=== PATIENT | male | born 1970 | race Caucasian/White ===

== ENCOUNTER 2018-01-04 06:35 | Emergency (ER) | payer MEDICARE ==
[2018-01-04 07:01] LABS: ABSOLUTE LYMPHOCYTES (AUTO) 1.3 10^3/uL (0.5-4.7); ABSOLUTE MONOCYTES (AUTO) 0.5 10^3/uL (0.1-1.4); ABSOLUTE NEUT (AUTO) 5.2 10^3/uL (1.7-8.2); BASOPHILS % (AUTO) 0.1 % (0-2); EOSINOPHILS % (AUTO) 0.6 % (0-6); HEMATOCRIT 42.8 % (37.9-51.0); HEMOGLOBIN 14.8 g/dL (13.5-17.0); LYMPHOCYTES % (AUTO) 18.6 % (13-45); MEAN CORPUSCULAR HEMOGLOBIN 28.8 pg (27.0-33.4); MEAN CORPUSCULAR HGB CONC 34.5 g/dL (32.0-36.0); MEAN CORPUSCULAR VOLUME 84 fl (80-97); MONOCYTES % (AUTO) 7.7 % (3-13); PLATELET COUNT 211 10^3/uL (150-450); RED BLOOD COUNT 5.12 10^6/uL (4.35-5.55); RED CELL DISTRIBUTION WIDTH 13.8 % (11.5-14.0); TOTAL CELLS COUNTED % (AUTO) 100 %; WHITE BLOOD COUNT 7.1 10^3/uL (4.0-10.5)
[2018-01-04 07:07] LABS: ALANINE AMINOTRANSFERASE 40 U/L (21-72); ALBUMIN 4.4 g/dL (3.5-5.0); ALKALINE PHOSPHATASE 72 U/L (38-126); ANION GAP 12 (5-19); ASPARTATE AMINO TRANSFERASE 29 U/L (17-59); BILIRUBIN,DIRECT 0.3 mg/dL (0.0-0.4); BILIRUBIN,TOTAL 0.7 mg/dL (0.2-1.3); BLOOD UREA NITROGEN 12 mg/dL (7-20); CALCIUM 9.1 mg/dL (8.4-10.2); CARBON DIOXIDE 29 mmol/L (22-30); CHLORIDE 101 mmol/L (98-107); GLUCOSE 85 mg/dL (75-110); LIPASE 62.6 U/L (23-300); POTASSIUM 4.2 mmol/L (3.6-5.0); SODIUM 141.8 mmol/L (137-145); TOTAL PROTEIN 7.3 g/dL (6.3-8.2)
[2018-01-04] MEDS ORDERED: BACLOFEN 10 MG TABLET PO ONE (07:41)
[2018-01-04] MEDS ORDERED: ONDANSETRON 4 MG TAB.RAPDIS PO ONE ×2 (07:49→11:16)
[2018-01-04] MEDS: NORMAL SALINE 1000 ML 1,000 ML IV PRN ×2 (08:06→08:07)
[2018-01-04 08:47] LABS: AMORPHOUS SEDIMENT,URINE TRACE /HPF; APPEARANCE,URINE SLIGHTLY-CLOUDY; BILIRUBIN,URINE NEGATIVE (NEGATIVE); COLOR,URINE YELLOW; GLUCOSE, URINE NEGATIVE (NEGATIVE); KETONES,URINE TRACE mg/dL (NEGATIVE); LEUKOCYTE ESTERASE,URINE NEGATIVE (NEGATIVE); NITRITE,URINE NEGATIVE (NEGATIVE); PROTEIN,URINE NEGATIVE (NEGATIVE); UROBILINOGEN,URINE NEGATIVE mg/dL (<2.0)
[2018-01-04] MEDS ORDERED: DIAZEPAM INJ 10 MG/2 ML DISP.SYRIN IV ONE (09:03)
--- NOTE | 2018-01-04 10:47 | EKG REPORT ---
SEVERITY:- ABNORMAL ECG - SINUS TACHYCARDIA PROBABLE LEFT ATRIAL ABNORMALITY PROBABLE LEFT VENTRICULAR HYPERTROPHY BORDERLINE PROLONGED QT INTERVAL : Confirmed by: Kiera Jones MD 04-Jan-2018 10:46:47
--- NOTE | 2018-01-04 11:29 | ER Document Report ---
ED General - General Chief Complaint: Abdominal Pain Stated Complaint: LEFT SIDE PAIN Time Seen by Provider: 01/04/18 06:50 TRAVEL OUTSIDE OF THE [place] IN LAST 30 DAYS: No - HPI Patient complains to provider of: Diarrhea muscle spasticity Notes: Patient has a history of TBI coming in today for evaluation of diarrhea and muscle spasticity. Patient has a baclofen pump patient states muscle spasms increasing her last few days worse last night also has been having diarrhea for the last 2-3 days. Patient states he has been trying to hydrate orally. States his little nauseous. Patient denies any fevers chills nausea vomiting. states patient sees pain management at [facility] and supposed to have his baclofen pump filled at the beginning of January. Upon my evaluation patient does look to be having muscle spasms in the lower legs and left upper extremities. Denies any head trauma denies any weakness. Patient is also tachycardic - Related Data Allergies/Adverse Reactions: Penicillins Allergy (Verified 01/04/18 07:10) Past Medical History - Social History Smoking Status: Never Smoker Frequency of alcohol use: None Family History: Reviewed & Not Pertinent Patient has suicidal ideation: No Patient has homicidal ideation: No Neurological Medical History: Reports: Hx Seizures Renal/ Medical History: Denies: Hx Peritoneal Dialysis Review of Systems - Review of Systems Constitutional: No symptoms reported EENT: No symptoms reported Cardiovascular: No symptoms reported Respiratory: No symptoms reported Gastrointestinal: Diarrhea Genitourinary: No symptoms reported Male Genitourinary: No symptoms reported Musculoskeletal: Muscle pain Skin: No symptoms reported Hematologic/Lymphatic: No symptoms reported Neurological/Psychological: No symptoms reported -: Yes All other systems reviewed and negative Physical Exam - Vital signs Vitals: Resp BP Pulse Ox 15 123/86 H 96 01/04/18 06:50 01/04/18 06:50 01/04/18 06:50 Interpretation: Normal - General General appearance: Appears well, Alert - HEENT Head: Normocephalic, Atraumatic Eyes: Normal Pupils: PERRL - Respiratory Respiratory status: No respiratory distress Chest status: Nontender Breath sounds: Normal Chest palpation: Normal - Cardiovascular Rhythm: Regular Heart sounds: Normal auscultation Murmur: No - Abdominal Inspection: Other - Hardware is felt in the right lower quadrant with a healed abdominal scars. Otherwise the abdomen soft nontender Distension: No distension Bowel sounds: Normal Tenderness: No: Guarding, Rebound Organomegaly: No organomegaly - Back Back: Normal, Nontender - Extremities General upper extremity: Nontender, Normal color, Normal ROM, Normal temperature. No: Normal inspection - Spasms of the left upper extremity General lower extremity: Nontender, Normal color, Normal ROM, Normal temperature , Normal weight bearing. No: Normal inspection - Spasms of the left lower extremity, Med's sign - Neurological Neuro grossly intact: Yes Cognition: Normal Orientation: AAOx4 Proctor Coma Scale Eye Opening: Spontaneous Proctor Coma Scale Verbal: Oriented Proctor Coma Scale Motor: Obeys Commands Proctor Coma Scale Total: 15 Speech: Normal Motor strength normal: LUE, RUE, LLE, RLE Additional motor exam normals: Equal candle wrapper Sensory: Normal Knee - Reflex grade: 2 = Normal - Psychological Associated symptoms: Normal affect, Normal mood - Skin Skin Temperature: Warm Skin Moisture: Dry Skin Color: Normal Course - Re-evaluation Re-evalutation: 01/04/18 11:56 Initial presentation the patient tachycardia and spasming concern for more likely underlying electrolyte abnormality. states that the patient in the past that has issues with baclofen pump requiring surgery. At that time patient was more drowsy and unresponsive sounds more like a overdose of baclofen. Patient's presentation days more consistent with failure of the pump and baclofen withdrawal Patient was given 10 of oral baclofen however did not receive any relief therefore did give the patient 5 out of the volume was to lowers his heart rate along with 2 L of fluid. Patient upon reevaluation stating feeling much better. Explained to the patient has left her lites were within normal limits more likely this is related to his back for the pump that at this time I would recommend treatment with either oral baclofen or Valium which ever his pain management doctor would recommend. Did contact [facility] however the patient's pain management group does not have anybody spinner iron according to the transfer team and when available to discuss the patient's case at the inform the patient of this given the options of transfer versus home with p.o. Valium. Patient states that he would rather go home this time as he is feeling better with p.o. Valium. then interrupted stating that she is more concerned because his previous episodes and thinks that the patient needs to go to [facility] for further evaluation. I did contact her hospitalist here in the ER I discussed the patient's case with Dr. Sow and unfortunately we do not have any pain management available to manage his baclofen pumps. There is no other person in the hospital that is familiar with baclofen pumps. Patient's heart rate did increase at this time is that his and him were arguing I discussed the patient's case with hospitalist at [facility] she is she will posterior and she is going to require more than Dr. Mcgowan. I discussed the case with Dr. Mcgowan he did ask what would be the benefit of transferring the patient to [facility]. I explained the only benefit that I see that the patient will be available to see his primary spray painter helper. Dr Mcgowan accepted the patient in transfer. I did notify the family. Noted at this time that the patient now is requesting to be discharged as that they would like to go home and he felt this is a safe option patient's vital signs have improved patient is feeling much better there is no longer any spasming of the patient patient can return to the ER anytime for worsening symptoms. Patient and at bedside now agree with this management plan patient will be discharged home 01/04/18 12:02 01/04/18 12:04 01/04/18 12:06 - Vital Signs Vital signs: Temp Pulse Resp BP Pulse Ox 98.7 F 14 134/92 H 100 01/04/18 11:50 01/04/18 11:50 01/04/18 11:50 01/04/18 11:50 - Laboratory Result Diagrams: 01/04/18 06:44 01/04/18 06:44 Laboratory results interpreted by me: 01/04/18 08:29 Urine Ketones TRACE H Discharge - Discharge Clinical Impression: Muscle spasticity, History of traumatic brain injury Diarrhea Qualifiers: Diarrhea type: unspecified type Qualified Code(s): R19.7 - Diarrhea, unspecified Baclofen pump failure Qualifiers: Encounter type: initial encounter Qualified Code(s): T85.610A - Breakdown ( mechanical) of cranial or spinal infusion catheter, initial encounter Condition: Good Disposition: HOME, SELF-CARE Instructions: Diarrhea, Nonspecific ([facility]), Muscle Relaxers ([facility]) Additional Instructions: Your laboratory studies today do not show any clear etiology for your diarrhea. There is no signs of any infection no signs of any electrolyte abnormalities. Please continue to drink plenty water to stay hydrated. I highly recommend that she follow-up with your pain management specialists the next 3-5 days. At this time we will treat as that this has increased muscle spasms with Valium seemed to perform well here in the ER. Return to the ER for any other concerns. Prescriptions: Diazepam [Valium 5 mg Tablet] 5 mg PO Q4 PRN #20 tablet PRN Reason: Forms: Return to Work
[2018-01-04 12:36] VITALS: BP 134/92
== END 2018-01-04 12:13 | disposition home or self-care (01) ==
LOC: ER 06:35
DX: T85.610A Breakdown (mechanical) of cranial or spinal infusion catheter, initial encounter (principal); Y82.8 Other medical devices associated with adverse incidents; M62.838 Other muscle spasm; R19.7 Diarrhea, unspecified; R00.0 Tachycardia, unspecified; Z87.820 Personal history of traumatic brain injury; Z88.0 Allergy status to penicillin
CPT/HCPCS: 93005; 99284; 96361; 96374; 36415; 83690; 83735; 80156; 85025; 80053; 81001; 93010; A9270 ×2; J3360; J7030; S0119

== ENCOUNTER 2019-07-17 21:07 | Emergency (ER) | payer MEDICARE ==
[2019-07-17 21:59] LABS: ABSOLUTE LYMPHOCYTES (AUTO) 1.1 10^3/uL (0.5-4.7); ABSOLUTE MONOCYTES (AUTO) 0.4 10^3/uL (0.1-1.4); ABSOLUTE NEUT (AUTO) 8.1 10^3/uL (1.7-8.2); BASOPHILS % (AUTO) 0.2 % (0-2); HEMATOCRIT 33.2 % (37.9-51.0); HEMOGLOBIN 11.2 g/dL (13.5-17.0); LYMPHOCYTES % (AUTO) 11.1 % (13-45); MEAN CORPUSCULAR HEMOGLOBIN 25.7 pg (27.0-33.4); MEAN CORPUSCULAR HGB CONC 33.7 g/dL (32.0-36.0); MEAN CORPUSCULAR VOLUME 76 fl (80-97); MONOCYTES % (AUTO) 4.4 % (3-13); PLATELET COUNT 240 10^3/uL (150-450); RED BLOOD COUNT 4.36 10^6/uL (4.35-5.55); RED CELL DISTRIBUTION WIDTH 14.8 % (11.5-14.0); SEGMENTED NEUTROPHILS % (AUTO) 84.3 % (42-78); TOTAL CELLS COUNTED % (AUTO) 100 %; WHITE BLOOD COUNT 9.6 10^3/uL (4.0-10.5)
[2019-07-17 22:20] LABS: ACETAMINOPHEN < 10 ug/mL (10-30); ALBUMIN 3.9 g/dL (3.5-5.0); ALCOHOL < 10 mg/dL (NONE DETECTED); ALKALINE PHOSPHATASE 53 U/L (38-126); ANION GAP 8 (5-19); ASPARTATE AMINO TRANSFERASE 29 U/L (17-59); BILIRUBIN,DIRECT 0.1 mg/dL (0.0-0.4); BILIRUBIN,TOTAL 0.5 mg/dL (0.2-1.3); BLOOD UREA NITROGEN 13 mg/dL (7-20); CALCIUM 8.9 mg/dL (8.4-10.2); CARBON DIOXIDE 26 mmol/L (22-30); CHLORIDE 100 mmol/L (98-107); GLUCOSE 113 mg/dL (75-110); POTASSIUM 4.4 mmol/L (3.6-5.0); SALICYLATE 1.1 mg/dL (2.0-20.0); TOTAL PROTEIN 6.6 g/dL (6.3-8.2)
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
[2019-07-17] MEDS: TIZANIDINE HCL 4 MG TABLET PO PRN (22:59)
[2019-07-17 23:43] LABS: APPEARANCE,URINE CLEAR; BILIRUBIN,URINE NEGATIVE (NEGATIVE); COLOR,URINE YELLOW; GLUCOSE, URINE NEGATIVE (NEGATIVE); KETONES,URINE 20 mg/dL (NEGATIVE); LEUKOCYTE ESTERASE,URINE NEGATIVE (NEGATIVE); NITRITE,URINE NEGATIVE (NEGATIVE); PROTEIN,URINE 30 mg/dL (NEGATIVE); URINE SPECIFIC GRAVITY 1.018
[2019-07-17 23:58] LABS: URINE AMPHETAMINES SCREEN NEGATIVE; URINE BARBITURATES SCREEN NEGATIVE; URINE BENZODIAZEPINES SCREEN NEGATIVE; URINE COCAINE SCREEN NEGATIVE; URINE MARIJUANA (THC) SCREEN NEGATIVE; URINE METHADONE SCREEN NEGATIVE; URINE PHENCYCLIDINE SCREEN NEGATIVE
[2019-07-18] MEDS: ACETAMINOPHEN 325 MG TABLET PO ONE ×2 (01:11→02:07)
[2019-07-18] MEDS ORDERED: CARBAMAZEPINE 200 MG TABLET PO SCH ×2 (08:00→14:30)
[2019-07-18] MEDS: TIZANIDINE HCL 4 MG TABLET PO PRN ×3 (08:28→23:15)
[2019-07-18] MEDS: CEPHALEXIN 500 MG CAPSULE PO SCH ×4 (10:15→23:15)
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
--- NOTE | 2019-07-18 16:55 | ER Document Report ---
Doctor's Note Notes: 07/18/19 16:54 patient resting comfortably without any complaints. Nontoxic, well-appearing. Patient's Tegretol was increased to twice daily per psych recommendations. Patient is agreeable to this plan of care. Patient will continue to remain in the ER pending psychiatric recommendations.
[2019-07-18] MEDS: CARBAMAZEPINE 200 MG TABLET PO SCH (17:46)
[2019-07-19] MEDS: CARBAMAZEPINE 200 MG TABLET PO SCH ×2 (08:28→18:11)
[2019-07-19] MEDS: CEPHALEXIN 500 MG CAPSULE PO SCH ×4 (10:50→22:09)
[2019-07-19] MEDS: TIZANIDINE HCL 4 MG TABLET PO PRN ×2 (15:25→22:09)
--- NOTE | 2019-07-19 20:45 | EKG REPORT ---
SEVERITY:- ABNORMAL ECG - SINUS RHYTHM PROBABLE LEFT ATRIAL ABNORMALITY PROBABLE LEFT VENTRICULAR HYPERTROPHY ABNORMAL T, CONSIDER ISCHEMIA, LATERAL LEADS : Confirmed by: Elisa Galarza 19-Jul-2019 20:44:27
[2019-07-20] MEDS ORDERED: ACETAMINOPHEN 325 MG TABLET PO ONE ×3 (06:01→19:45)
[2019-07-20] MEDS: TIZANIDINE HCL 4 MG TABLET PO PRN ×3 (06:15→14:01)
--- NOTE | 2019-07-20 07:56 | PSYCHOLOGICAL NOTE ---
Psych Note - Psych Note Date seen by psych provider: 07/20/19 Time seen by psych provider: 07:45 Psych Note: Check in attempted. Patient was sleeping and not easily aroused by verbal stimuli. Patient is not medically clear. Clinician will check in with patient later. Updated 12:15: Patient is tearful and requesting to be discharged. Patient states he was not trying to kill himself that he was "trying to teach his a lesson." Patient states he is "going crazy in here." Patient states he now knows he is "better off at home." Clinician attempted to relay his spouse's fears of increased depression. Patient denies depression and a desire to , except for "in here." Medication recommendations per [facility]'s contracted psychiatrist Dr. Warren SINGH are as follows Please increase home medication of Tegretol to 400 mg twice daily Impression\\plan: Patient is recommended for continued IVC. Patient attempted to kill himself by cutting his wrist. Medication recommendations have been provided. Patient continues to minimize suicide attempt. Patient lack insight into his current circumstance. Plan of care discussion is ongoing. Nathaniel was consulted to care management of this patient; attending physicians in agreement with recommendations and disposition.
[2019-07-20] MEDS: CARBAMAZEPINE 200 MG TABLET PO SCH ×2 (08:21→18:26)
[2019-07-20] MEDS: CEPHALEXIN 500 MG CAPSULE PO SCH ×4 (09:43→21:54)
--- NOTE | 2019-07-20 10:26 | ER Document Report ---
Doctor's Note Notes: 07/20/19 10:25 I discussed the patient with the psychiatric team. I evaluated the patient. He has contractures of the left hand and upper arm. There is a laceration to the volar aspect of the right wrist with sutures that are intact, no redness or discharge at this time. Patient has no complaints at this time. Physical therapy consultation has been ordered for the patient per the social science instructor clarice levin.
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
--- NOTE | 2019-07-20 11:09 | ER Document Report ---
Doctor's Note Notes: 07/20/19 11:05 On further discussion with psychiatry they are requesting a head CT, they had apparently spoken with the patient's who indicated that approximately 1.5 years ago there was an abrupt change in the patient's mental status. They are concerned patient may have had a stroke or something else that precipitated this.
--- NOTE | 2019-07-20 11:47 | RADIOLOGY REPORT (SQ) ---
EXAM DESCRIPTION: CT HEAD WITHOUT COMPLETED DATE/TIME: 07/20/2019 11:33 am REASON FOR STUDY: AMS COMPARISON: None. TECHNIQUE: Axial images acquired through the brain without intravenous contrast. Images reviewed wi th bone, brain and subdural windows. Additional sagittal and coronal reconstructions were generated. Images stored on PACS. All CT scanners at this facility use dose modulation, iterative reconstruction, and/or weight based d osing when appropriate to reduce radiation dose to as low as reasonably achievable (ALARA). [facility]: Dose Right [facility]: CareDose [facility]: Dose Right [facility]: Teradose 4D [facility]: [employer] RADIATION DOSE: CT Rad equipment meets quality standard of care and radiation dose reduction techniq ues were employed. CTDIvol: 53.2 mGy. DLP: 1044 mGy-cm. mGy. LIMITATIONS: None. FINDINGS: VENTRICLES: Normal size and contour. CEREBRUM: No masses. No hemorrhage. No midline shift. No evidence for acute infarction. Chronic in farct involving the right posterior frontal anterior parietal region. This contains calcifications c entrally. CEREBELLUM: No masses. No hemorrhage. No alteration of density. No evidence for acute infarction. EXTRAAXIAL SPACES: No fluid collections. No masses. ORBITS AND GLOBE: No intra- or extraconal masses. Normal contour of globe without masses. CALVARIUM: No fracture. PARANASAL SINUSES: No fluid or mucosal thickening. SOFT TISSUES: No mass or hematoma. OTHER: No other significant finding. IMPRESSION: Old right MCA infarct. No acute intracranial event. EVIDENCE OF ACUTE STROKE: NO. COMMENT: Quality ID # [id number]: Final reports with documentation of one or more dose reduction techniques (e.g., Automated exposure control, adjustment of the mA and/or kV according to patient size, use of iterative reconstruction technique) TECHNICAL DOCUMENTATION: JOB ID: [id number] [employer]- All Rights Reserved Reading location - IP/workstation name: [email or web address]
--- NOTE | 2019-07-20 17:02 | ER Document Report ---
Doctor's Note Notes: 07/20/19 17:[address] imaging report which shows an old right MCA infarction. No acute infarction is noted
[2019-07-21] MEDS: TIZANIDINE HCL 4 MG TABLET PO PRN ×4 (00:02→20:12)
[2019-07-21] MEDS: CARBAMAZEPINE 200 MG TABLET PO SCH ×2 (07:39→17:46)
[2019-07-21] MEDS: CEPHALEXIN 500 MG CAPSULE PO SCH ×4 (09:15→21:18)
--- NOTE | 2019-07-21 10:20 | ER Document Report ---
Doctor's Note Notes: 07/21/19 10:20 Patient awake and alert states he wants to go home. Has no other complaints physically at this time. Denies thoughts of wanting to hurt himself currently. Has spoken with the psychiatric team, they do not yet have placement for the patient.
--- NOTE | 2019-07-21 14:45 | PSYCHOLOGICAL NOTE ---
Psych Note - Psych Note Date seen by psych provider: 07/21/19 Time seen by psych provider: 08:40 Psych Note: Check in with patient. Patient states "the meds are really working, especially at night." Patient states he is "going crazy" being in the ED. Patient restated he did not attempt to kill himself, that he was trying to get back at his because "I was ill with her." Patient states "I love myself too much " to kill myself. Clinician stated that we could chat further when his arrived. Clinician made no promise or utterance to indicate patient would be discharged today. Clinician met with patient's who stated she was overwhelmed. Spouse describ ed patient's suicide attempt. Patient states she is caring for her ailing mother and her granddaughter. Spouse expressed concern that granddaughter could be taken away from her if patient's mental health is not "dealt with." Clinician states patient is minimizing the suicide attempt and is calm and cooperative, but fixated on going home. Clinician spoke with patient with at bedside and explained that patient would not be going home this evening. Patient began to weap and beg clinician to "let me go home." Patient requested to be transferred to a new facility that would allow him fresh air, access to electronics, and occupational therapy. Clinician informed patient the plan was to transfer him to an appropriate place to address all of his concerns. Patient became irate, cussing at his and hospital staff. Patient began to hit his stomach where his pump is located and strike his head with a closed fist. Patient went between weeping and begging to go home to cursing and physical outbursts. Patient attempted multiple time to stand up from the chair in an attempt to leave. Clinician attempted to speak with patient in a low, calm tone and explain that these are some of the behaviors that resulted in his need to be hospitalized. Patient began blaming his for his current circumstance. Clinician explained to patient that he attempted suicide, his did not do this to him. Clinician explained he is here due to his actions. Clinician explained his wants him to feel better. It became necessary for medication management and security to be involved to ensure patient's safety. Patient was administered Haldol 5MG, ONE TIME DOSE and Ativan 1MG, ONE TIME DOSE. Clinician spoke with spouse after event. Spouse explained this is how patient acts when he becomes agitated. Clinician provided brief psychoeducation regarding loved ones who care for those with mental health and mobility concerns. Clinician encourage spouse to engage in some self-care. Spouse expressed some guilt regarding patient's verbalizations. Clinician encouraged spouse not to take patients words personally as he is experiencing a great deal of emotional distress this time. Discussed the validity and empathized with patient's circumstance with spouse regarding the decline in quality of life patient is currently experiencing. Medication recommendations per [facility]'s contracted psychiatrist Dr. Warren SINGH are as follows Continue Tegretol 400 mg twice daily Impression\\plan: Patient is recommended for continued IVC. Patient attempted to kill himself by cutting his wrist. Medication recommendations have been provided. Patient continues to minimize suicide attempt. Patient lack insight into his current circumstance. Patient engaged in behavioral outburst when he was informed he would not be discharged today. Placement efforts are ongoing. Nathaniel was consulted to care management of this patient; attending physicians in agreement with recommendations and disposition.
[2019-07-21] MEDS ORDERED: HALOPERIDOL LACTATE INJ 5 MG/1 ML VIAL IM ONE (17:11)
[2019-07-21] MEDS ORDERED: LORAZEPAM INJ 2 MG/1 ML VIAL IM ONE (17:11)
--- NOTE | 2019-07-21 17:13 | ER Document Report ---
Doctor's Note Notes: 07/21/19 17:13 Patient is made aware by the psychiatric team that he must stay because he does not have placement, he cannot go home. There is no definitive plan in place for him yet. Patient is acting out now, verbally abusive to staff, striking himself with his hand, attempting to get up when he needs assistance with walking and refusing to be redirected. Reviewed his medical record. Will give patient Haldol 5 mg IM, Ativan 1 mg IM initially
--- NOTE | 2019-07-21 20:05 | ER Document Report ---
Doctor's Note Notes: 07/21/19 20:04 Occupational therapy eval, physical therapy eval, and Tegretol levels ordered per request of Bethany Robertson from psych.
[2019-07-22] MEDS: CARBAMAZEPINE 200 MG TABLET PO SCH ×2 (09:19→18:12)
[2019-07-22] MEDS: CEPHALEXIN 500 MG CAPSULE PO SCH ×4 (09:19→21:09)
[2019-07-22] MEDS: TIZANIDINE HCL 4 MG TABLET PO PRN ×2 (09:50→21:08)
--- NOTE | 2019-07-22 12:50 | ER Document Report ---
Doctor's Note Notes: 07/22/19 12:50 Chart reviewed patient rounded on 07/22/19 13:58 Patient resting quietly in bed. Reports he just wants to go home. Denies suicidal or homicidal ideations. Sutured laceration to the left wrist noted no signs or symptoms of infection. PHYSICAL EXAMINATION: GENERAL: nontoxic looking, no distress HEAD: Atraumatic, normocephalic. EYES: extraocular movements intact, sclera anicteric, conjunctiva are normal. ENT: nares patent Moist mucous membranes. NECK: Normal range of motion, supple without lymphadenopathy LUNGS: CTAB and equal. No wheezes rales or rhonchi. HEART: Regular rate and rhythm without murmurs ABDOMEN: Soft, no tenderness. No guarding, no rebound EXTREMITIES: Normal range of motion, left hand contracted. NEUROLOGICAL: Cranial nerves grossly intact. Normal sensory/motor exams. PSYCH: Normal mood, normal affect. calm SKIN: Warm, Dry, normal turgor, suture site left wrist site benign 07/22/19 18:08 Patient has been calm all day. Asking for Tylenol for aches and pains in his contractures. He reports he just wants to go home.
[2019-07-22] MEDS ORDERED: ACETAMINOPHEN 325 MG TABLET PO ONE ×2 (13:23→18:06)
[2019-07-22] MEDS: ACETAMINOPHEN 325 MG TABLET PO PRN (22:40)
[2019-07-23] MEDS ORDERED: MELATONIN 1 MG TABLET PO ONE (01:56)
[2019-07-23] MEDS ORDERED: MELATONIN 3 MG TABLET PO ONE (02:06)
[2019-07-23] MEDS: TIZANIDINE HCL 4 MG TABLET PO PRN ×2 (03:10→21:51)
--- NOTE | 2019-07-23 08:43 | ER Document Report ---
Doctor's Note Notes: 07/23/19 08:42 Melatonin was written 3 mg for this patient for sleep as he stated he cannot go to sleep with the medications he was on. He also got Tylenol ordered earlier in the shift for discomfort. After he still did not go to sleep with the melatonin the nurse stated that he did have a as needed medicine and they did give him that and he slept the rest of the shift.
[2019-07-23] MEDS: CARBAMAZEPINE 200 MG TABLET PO SCH ×2 (08:52→18:19)
[2019-07-23] MEDS: CEPHALEXIN 500 MG CAPSULE PO SCH ×4 (09:03→21:04)
[2019-07-23] MEDS ORDERED: OLANZAPINE 2.5 MG TABLET PO SCH ×2 (13:19→22:00)
--- NOTE | 2019-07-23 13:44 | PSYCHOLOGICAL NOTE ---
Psych Note - Psych Note Date seen by psych provider: 07/22/19 Time seen by psych provider: 12:00 Psych Note: Reason For Consult: Suicide attempt Consent Permissions: 48-year-old male sent to the emergency department from [facility] due to an inability to care for him at [facility]. Patient was originally accepted to [facility] from after he was seen and treated for cutting his wrist. Earlier today patient locked himself into the weight room and cut his left wrist in a suicide attempt. Check in conducted with Patient: Patient reports he declined physical therapy. Clinician discussed with patient his concerns about his physical state deteriorating because he is unable to do his workouts, but then declined assistance in addressing his daily physical therapy. Patient reports he wants to go home. Clinician discussed concerns about the patient's behaviour the previous evening; he reports "I promise not to do that again, I am sorry, I just want to go home." Patient continues to minimize and deflect when asking direct questions and demonstrates no insight into his behaviors. Medication recommendations per [facility]'s contracted psychiatrist Dr. Warren SINGH are as follows Please increase home medication of Tegretol to 400 mg twice daily Impression\\plan: Patient is recommended for continued IVC. Patient attempted to kill himself by cutting his wrist. Patient was medically seen by where he received stitches. Patient was sent to [facility] ED via [facility] from [facility] after they stated they were unable to care for him medically ([facility] would not accept him back to their facility). Patient continues to minimize and deflect when asking direct questions and demonstrates no insight into his behaviors. Medication recommendations have been provided. Dr. Armstrong was consulted to care management of this patient; attending physicians in agreement with recommendations and disposition.
[2019-07-23] MEDS: OLANZAPINE 2.5 MG TABLET PO SCH ×2 (13:53→21:04)
--- NOTE | 2019-07-23 16:19 | ER Document Report ---
Doctor's Note Notes: 07/23/19 16:18 Pt's muscle contractures are improved. Pt states he has been getting his muscle relaxer when he asks for it. PT has been coming to help. Pt usually exercises at home. Pt has no other complaints. Nontoxic, well appearing. Zyprexa has been added on.
[2019-07-23] MEDS: ACETAMINOPHEN 325 MG TABLET PO PRN (18:20)
[2019-07-24] MEDS: ACETAMINOPHEN 325 MG TABLET PO PRN ×2 (00:01→10:09)
[2019-07-24] MEDS: CARBAMAZEPINE 200 MG TABLET PO SCH ×2 (08:04→18:20)
[2019-07-24] MEDS: OLANZAPINE 2.5 MG TABLET PO SCH ×2 (09:04→21:55)
[2019-07-24] MEDS: CEPHALEXIN 500 MG CAPSULE PO SCH ×4 (09:04→21:55)
--- NOTE | 2019-07-24 10:57 | PSYCHOLOGICAL NOTE ---
Psych Note - Psych Note Date seen by psych provider: 01/22/20 Time seen by psych provider: 10:40 Psych Note: Reason For Consult: Suicide attempt Consent Permissions: 48-year-old male sent to the emergency department from [facility] due to an inability to care for him at [facility]. Patient was originally accepted to [facility] from [facility] after he was seen and treated for cutting his wrist. Earlier today patient locked himself into the weight room and cut his left wrist in a suicide attempt. Check in conducted with Patient: Patient reports he continues to decline physically and mentally being in the ED. Clinician discussed with patient his concerns about his physical state deteriorating because he is unable to do his workouts, but then declined assistance in addressing his daily physical therapy. Patient reports he wants t o go home. Patient continues to minimize and deflect when asking direct questions and demonstrates no insight into his behaviors. Discussed physical therapy was declined. Clinician expressed the importance of maintaining control of emotions. Medication recommendations per [facility]'s contracted psychiatrist Dr. Warrne SINGH are as follows Please increase home medication of Tegretol to 400 mg twice daily Impression\plan: Patient is recommended for continued IVC. Patient attempted to kill himself by cutting his wrist. Patient was medically seen by [facility] where he received stitches. Patient was sent to [facility] ED via [facility] from [facility] after they stated they were unable to care for him medically ([facility] would not accept him back to their facility). Patient continues to minimize and deflect when asking direct questions and demonstrates no insight into his behaviors. Medication recommendations have been provided. Dr. Armstrong was consulted to care management of this patient; attending physicians in agreement with recommendations and disposition.
[2019-07-24] MEDS: TIZANIDINE HCL 4 MG TABLET PO PRN (14:31)
--- NOTE | 2019-07-24 19:07 | ER Document Report ---
Doctor's Note Notes: 07/24/19 19:06 Late note. Pt states he is doing alright. Pt is pending disposition per psych recommendations. Nontoxic, well appearing.
[2019-07-25] MEDS: TIZANIDINE HCL 4 MG TABLET PO PRN ×3 (01:11→22:36)
[2019-07-25] MEDS: CARBAMAZEPINE 200 MG TABLET PO SCH ×2 (08:26→17:24)
[2019-07-25] MEDS: OLANZAPINE 2.5 MG TABLET PO SCH ×2 (10:25→22:35)
[2019-07-25] MEDS: ACETAMINOPHEN 325 MG TABLET PO PRN (13:58)
--- NOTE | 2019-07-25 14:11 | ER Document Report ---
Doctor's Note Notes: 07/25/19 14:10 Evaluated pt. Pt continues to be IVC per psych recommendations. Pt is resting comfortably. Nontoxic, well appearing.
[2019-07-25] MEDS ORDERED: PHENYLEPHRINE HCL 1 EACH SUPP.RECT PR ONE (16:21)
--- NOTE | 2019-07-25 20:09 | PSYCHOLOGICAL NOTE ---
Psych Note - Psych Note Date seen by psych provider: 07/25/19 Time seen by psych provider: 15:00 Psych Note: Reason For Consult: Suicide attempt Consent Permissions: 48-year-old male sent to the emergency department from [facility] due to an inability to care for him at [facility]. Patient was originally accepted to [facility] from [facility] after he was seen and treated for cutting his wrist. Earlier today patient locked himself into the weight room and cut his left wrist in a suicide attempt. Check in conducted with Patient: Clinician notes patient was using chair and hospital bed together in an attempt to exercise the majority of the day. Patient states he is "doing good." Patient reports benefit of medication. Patient politely and calmly made his desire to go home known to clinician. Patient spoke of spiritual concerns such as God taking you down to teach you a lesson. Patient spoke of dealing with anger in order to be able to let it go. Patient spoke of his jealousy and feelings of insecurity related to his [id number]'s health around the house, and particularly when the children go to her for things instead of him. Patient spoke of not having a filter from his brain to his mouth since his TBI. Patient verbalized insight into how this can be distressing for his family. Patient verbalized insight into how his pride has contributed in his current circumstances. Clinician notes emotion and tearfulness as spoke about his children seeing him as their father and nothing changing that. Patient notes patient's smile and laughter. Discussed with patient and spouse maintaining healthy boundaries and healthy communication in the home. Patient states he is agreeable with mental health services upon discharge. Clinician spoke with spouse who states she "sees a difference." Spouse expressed some concern about patient being able to maintain these behaviors at discharge. Clinician stated that is a possibility and continued that question will only be able to be answered when patient returns home. Spouse states she is not ready for patient to come home yet, because she has hired masonry instructor to clean the home. Medication recommendations per [facility]'s contracted psychiatrist Dr. Warren SINGH are as follows Tegretol 400 mg twice daily Impression\\plan: Patient is recommended for continued IVC. Patient attempted to kill himself by cutting his wrist. Medication recommendations have been provided. Patient verbalized insight for the first time today regarding how his behaviors contributed to his current circumstance. Patient verbalized distress regarding how his behaviors have affected his family. Patient spoke of his behavior affecting the family dynamic, and also how the TBI is affecting his cognitive abilities. Patient was able to verbalize how emotions of jealousy, pride, and feelings of insecurity were contributors of his current circumstance and family stress. Dr. Armstrong was consulted to care management of this patient; attending physicians in agreement with recommendations and disposition.
[2019-07-26] MEDS: ACETAMINOPHEN 325 MG TABLET PO PRN ×3 (03:46→21:25)
[2019-07-26] MEDS: CARBAMAZEPINE 200 MG TABLET PO SCH ×2 (08:59→18:46)
[2019-07-26] MEDS: OLANZAPINE 2.5 MG TABLET PO SCH ×2 (09:03→21:25)
--- NOTE | 2019-07-26 10:10 | PSYCHOLOGICAL NOTE ---
Psych Note - Psych Note Date seen by psych provider: 07/26/19 Time seen by psych provider: 08:40 Psych Note: Reason For Consult: Suicide attempt Consent Permissions: 48-year-old male sent to the emergency department from [facility] due to an inability to care for him at [facility] Patient was originally accepted to [facility] from [facility] after he was seen and treated for cutting his wrist. Earlier today patient locked himself into the weight room and cut his left wrist in a suicide attempt. Check in conducted with Patient: Patient states he is doing well. Patient verbalized continued benefit of medications. Patient states he requested assistance from the nurse and was asked to wait for a few minutes as the nurse was unable to come immediately. Patient reported, "I wanted to lose it, but I didn't." Patient continued that "I'm proud of myself." Clinician and patient had a productive conversation regarding maintaining the behaviors and engaging in mental health services to continue cultivating emotional regulation and coping skills. Patient was receptive. Will discuss probable discharge, tomorrow, with today. Patient will not be informed of probable discharge as continued mood stabilization and observation of continued use of appropriate behaviors and interactions with others are needed before final decision is made to rescind IVC. Medication recommendations per [facility]'s contracted psychiatrist Dr. Warren SINGH are as follows Continue Tegretol 400 mg twice daily Continue Zyprexa 2.5MG, every 12 hours Impression\\plan: Patient is recommended for continued IVC. Patient attempted to kill himself by cutting his wrist. Medication recommendations have been provided. Patient's mood continues to stabilize as evidenced by thoughtful and purposeful engagement with clinician, verbalizing insights into his behavior and consequences, and the effect his behavior has had on his family. Dr. Armstrong was consulted to care management of this patient; attending physicians in agreement with recommendations and disposition.
[2019-07-26] MEDS: TIZANIDINE HCL 4 MG TABLET PO PRN (15:39)
--- NOTE | 2019-07-26 16:57 | ER Document Report ---
Doctor's Note Notes: 07/26/19 16:55 Evaluated pt. Pt states he is doing well. Pt nontoxic, well appearing. Pt is requesting sutures be removed. States they are supposed to come out in 10 days and it is about 10 days since they were placed. #6 sutures seen on left forearm, healing well. No wound dehiscence. No erythema. No swelling. Purulent drainage. #6 sutures are removed by me. Patient tolerated procedure well. Patient given instructions to keep area clean and watch for signs of infection. Patient voices understanding.
[2019-07-26] MEDS ORDERED: MELATONIN 5 MG TABLET PO ONE (23:33)
[2019-07-27] MEDS: CARBAMAZEPINE 200 MG TABLET PO SCH (08:39)
[2019-07-27] MEDS: ACETAMINOPHEN 325 MG TABLET PO PRN (08:41)
--- NOTE | 2019-07-27 10:18 | PSYCHOLOGICAL NOTE ---
Psych Note - Psych Note Date seen by psych provider: 07/23/19 Time seen by psych provider: 09:21 Psych Note: Reason For Consult: Suicide attempt Consent Permissions: 48-year-old male sent to the emergency department from [facility] due to an inability to care for him at [facility]. Patient was originally accepted to [facility] from [facility] after he was seen and treated for cutting his wrist. Earlier today patient locked himself into the weight room and cut his left wrist in a suicide attempt. Check in conducted with Patient: Patient reports he engaged in occupational therapy this morning. updated Medication recommendations per [facility]'s contracted psychiatrist Dr. Warren SINGH are as follows Add Zyprexa 2.5mg twice daily Continue Tegretol to 400 mg twice daily Impression\plan: Patient is recommended for continued IVC. Patient attempted to kill himself by cutting his wrist. Patient was medically seen by [facility] where he received stitches. Patient was sent to [facility] ED via [facility] from [facility] after they stated they were unable to care for him medically ([facility] reportedly would not accept him back to their facility). Patient continues to minimize and deflect when asking direct questions and demonstrates no insight into his behaviors. Medication recommendations have been provided. Dr. Armstrong was consulted to care management of this patient; attending physicians in agreement with recommendations and disposition.
--- NOTE | 2019-07-27 10:21 | PSYCHOLOGICAL NOTE ---
Psych Note - Psych Note Date seen by psych provider: 07/27/19 Time seen by psych provider: 08:10 Psych Note: Reason For Consult: Suicide attempt Consent Permissions:patient's 48-year-old male sent to the emergency department from [facility] due to an inability to care for him at [facility]. Patient was originally accepted to [facility] from [facility] after he was seen and treated for cutting his wrist. Earlier today patient locked himself into the weight room and cut his left wrist in a suicide attempt. Check in conducted with Patient: Patient greets clinician with smile and engages appropriately. He reports that he feels that the medication recently started has really been helping. He notes that his hunger has gone up however feels that he will be able to control his weight because of his daily exercise routine. Patient states that this process while "been aggravating but it honestly a blessing." He reports that he did not like feeling the way he was feeling and identifies feeling significant improvement. Medication recommendations per [facility]'s contracted psychiatrist Dr. Warren SINGH are as follows Zyprexa 2.5mg twice daily Tegretol to 400 mg twice daily Impression\\plan: Patient is recommended for end of IVC and is cleared from acute psychiatric services. Patient has demonstrated significant improvement and has been able to maintain emotional stability. Patient has been able to engage effectively with clinicians and identifies the importance of follow-up with outpatient mental health services. Patient is recommended to continue with medications and to obtain outpatient mental health therapy. Dr. Armstrong was consulted to care management of this patient; attending physicians in agreement with recommendations and disposition.
[2019-07-27] MEDS: OLANZAPINE 2.5 MG TABLET PO SCH (10:34)
[2019-07-27] MEDS: TIZANIDINE HCL 4 MG TABLET PO PRN (10:45)
--- NOTE | 2019-07-27 11:00 | ER Document Report ---
Doctor's Note Notes: 07/27/19 10:56 PHYSICAL EXAMINATION: GENERAL: Appears well, healthy, well-nourished, no acute distress. LUNGS: Equal breath sounds bilaterally and clear to auscultation. No wheezes rales or rhonchi. CARDIOVASCULAR: S1-S2, regular rate, regular rhythm. Radial pulses 2+, normal. ABDOMEN: Normoactive bowel sounds. Soft, nontender, no guarding, no rebound tenderness, and no masses palpated. PSYCH: Normal mood, normal affect. Patient denies any suicidal or homicidal ideation. Plan is to place patient on Tegretol and Zyprexa. He states that he feels that this has helped him with how he has been feeling. Patient will follow-up with mental health outpatient. Patient is cleared by mental health to go home. He is also medically stable. Labs reviewed. Follow-up precautions were given. Verbal discharge instructions were given to the patient. They verbalized understanding. They are stable for discharge.
[2019-07-27 13:03] VITALS: BP 122/74
--- NOTE | 2019-08-12 20:41 | ER Document Report ---
Doctor's Note Notes: 08/12/19 20:41 Addendum my initial discharge diagnosis of laceration to the left upper arm was inaccurate, it should have read laceration to the left forearm subsequent encounter. This is been fixed.
== END 2019-07-27 12:58 | disposition home or self-care (01) ==
LOC: ER 21:07
DX: S51.812A Laceration without foreign body of left forearm, initial encounter (principal); X78.9XXA Intentional self-harm by unspecified sharp object, initial encounter; Y92.198 Other place in other specified residential institution as the place of occurrence of the external cause; M62.422 Contracture of muscle, left upper arm; M62.442 Contracture of muscle, left hand; V49.9XXS Car occupant (driver) (passenger) injured in unspecified traffic accident, sequela; R45.6 Violent behavior; R56.9 Unspecified convulsions; Z79.899 Other long term (current) drug therapy; Z75.1 Person awaiting admission to adequate facility elsewhere; D64.9 Anemia, unspecified
CPT/HCPCS: 93005; 99285; 36415; 80307 ×4; 80156; 85025; 80053; 81001; 93010; A9270 ×44; J1630; J2060; J3490

== ENCOUNTER 2019-11-22 10:21 | Inpatient (IN) | payer MEDICARE, MEDICAID ==
[2019-11-22] MEDS ORDERED: IPRATROPIUM/ALBUTEROL 0.5-2.5 MG/3 ML AMPUL NEB ONE (11:04)
[2019-11-22] MEDS ORDERED: PREDNISONE 20 MG TABLET PO ONE (11:06)
[2019-11-22] MEDS ORDERED: ONDANSETRON HCL INJ/PF 4 MG/2 ML SDV IV ONE (11:07)
--- NOTE | 2019-11-22 11:07 | ER Document Report ---
ED Respiratory Problem - General Chief Complaint: Shortness Of Breath Stated Complaint: SHORTNESS OF BREATH Time Seen by Provider: 11/22/19 10:26 Information source: Patient Notes: Patient presents complaining of cough congestion and shortness of breath for the past week. Patient states symptoms are worse with exertion. Patient states earlier in the week he had a mild fever but denies any since then. Patient doreen tionally complains of swelling to the lower extremities abdomen and feels that he has some mild swelling to the face as well. Patient without any difficulty swallowing. Patient does complain of some mild nausea. Patient only reports a history of muscle spasms and TBI with chronic left-sided weakness. TRAVEL OUTSIDE OF THE [place] IN LAST 30 DAYS: No - HPI Patient complains to provider of: Cough, Short of breath. No: Chest pain, CHF Onset: Last week Duration: Worse/persistent Context: denies: Hx asthma, Hx CHF, Hx COPD, Recent surgery, Smoker Cough: Nonproductive Associated symptoms: Congestion, Cough, Runny nose, Short of breath. denies: Wheezing Similar symptoms previously: No Recently seen / treated by doctor: No - Related Data Allergies/Adverse Reactions: Penicillins Allergy (Verified 01/04/18 07:10) Past Medical History - General Information source: Patient - Social History Smoking Status: Never Smoker Chew tobacco use (# tins/day): No Frequency of alcohol use: None Drug Abuse: None Lives with: Family Family History: Reviewed & Not Pertinent Patient has homicidal ideation: No Neurological Medical History: Reports: Hx Seizures, Other - Left sided weakness Renal/ Medical History: Denies: Hx Peritoneal Dialysis Musculoskeletal Medical History: Reports Other - Muscle spasms Traumatic Medical History: Reports: Hx Traumatic Brain Injury Past Surgical History: Reports: Other - Baclofen pump insertion Review of Systems - Review of Systems Constitutional: No symptoms reported. denies: Fever EENT: No symptoms reported Cardiovascular: Orthopnea, Dyspnea. denies: Chest pain Respiratory: Cough, Short of breath Gastrointestinal: Nausea. denies: Abdominal pain, Vomiting Genitourinary: No symptoms reported Male Genitourinary: No symptoms reported Musculoskeletal: Leg swelling Skin: No symptoms reported Hematologic/Lymphatic: No symptoms reported Neurological/Psychological: No symptoms reported Physical Exam - Vital signs Vitals: Temp Pulse Resp BP Pulse Ox 97.4 F 118 H 24 H 128/87 H 99 11/22/19 10:28 11/22/19 10:28 11/22/19 10:28 11/22/19 10:28 11/22/19 10:28 - General General appearance: Alert In distress: Mild - HEENT Head: Normocephalic, Atraumatic Nasal: Normal Mouth/Lips: Normal Mucous membranes: Normal Pharynx: Normal. No: Potential airway comprom. Neck: Normal - Respiratory Respiratory status: Tachypnea Chest status: Nontender Breath sounds: Nonproductive cough, Rales Chest palpation: Normal - Cardiovascular Rhythm: Tachycardia Heart sounds: S1 appreciated, S2 appreciated Pulses: Normal: Dorsalis pedis - Abdominal Inspection: Obese, Other - Scars and palpable mass to right side of abdomen the patient reports this is baclofen pump Distension: No distension Bowel sounds: Normal Tenderness: Nontender - Back Back: Normal, Nontender. No: CVA tenderness - Extremities General upper extremity: Other - Contracture noted to left upper extremity General lower extremity: Edema - 2+ edema bilateral lower extremities - Psychological Associated symptoms: Normal affect, Normal mood - Skin Skin Temperature: Warm Skin Moisture: Dry Skin Color: Normal Course - Re-evaluation Re-evalutation: 11/22/19 11:00 Patient tachypneic and tachycardic, oxygen at 2 L applied. 11/22/19 13:00 Attempted to remove oxygen, patient's heart rate increased to the 110s while at rest, any exertional movements caused patient's heart rate to increase to the up per 120s. Patient complains of increased shortness of breath without the oxygen. Oxygen was then reapplied. Patient is unable to be road tested due to his left-sided weakness and contractures to the left hand. Patient does appear to have acute congestive heart failure. Patient has no previous history of congestive heart failure although does acknowledge that he has a twin brother with this condition. Patient with pulmonary vascular congestion findings on x- ray with an elevated BNP. Patient without any fever or leukocytosis. Will be COVID-[address] Tan guarding patient presentation and diagnostic evaluation, Dr Tan does agree to accept patient for admission at this time. Patient is agreeable with plan of care at this time. - Vital Signs Vital signs: Temp Pulse Resp BP Pulse Ox 97.9 F 118 H 14 110/76 100 11/22/19 10:32 11/22/19 10:28 11/22/19 12:01 11/22/19 12:01 11/22/19 12:01 - Laboratory Result Diagrams: 11/22/19 10:38 11/22/19 10:38 Laboratory results interpreted by me: 11/22/19 11/22/19 11/22/19 10:38 10:38 10:38 Hgb 10.1 L Hct 33.4 L MCV 69 L MCH 20.8 L MCHC 30.3 L RDW 17.7 H BUN 23 H NT-Pro-B Natriuret Pep 4640 H Labs- Entire Visit 11/22/19 11/22/19 11/22/19 10:38 10:38 10:38 WBC 6.9 RBC 4.88 Hgb 10.1 L Hct 33.4 L MCV 69 L MCH 20.8 L MCHC 30.3 L RDW 17.7 H Plt Count 235 Lymph % (Auto) 28.1 [place] % (Auto) 5.4 Eos % (Auto) 1.3 Baso % (Auto) 0.9 Absolute Neuts (auto) 4.4 Absolute Lymphs (auto) 1.9 Absolute Monos (auto) 0.4 Absolute Eos (auto) 0.1 Absolute Basos (auto) 0.1 Seg Neutrophils % 64.3 Sodium 138.9 Potassium 4.6 Chloride 101 Carbon Dioxide 26 Anion Gap 12 BUN 23 H Creatinine 0.96 Est GFR ( Amer) > 60 Est GFR (MDRD) Non-Af > 60 Glucose 91 Calcium 9.3 Magnesium 2.2 Total Bilirubin 0.5 Direct Bilirubin 0.1 Neonat Total Bilirubin Not Reportable Neonat Direct Bilirubin Not Reportable Neonat Indirect Bili Not Reportable AST 43 ALT 29 Alkaline Phosphatase 82 Troponin I 0.029 NT-Pro-B Natriuret Pep 4640 H Total Protein 7.6 Albumin 4.3 SARS-CoV-2 (PCR) 11/22/19 12:30 WBC RBC Hgb Hct MCV MCH MCHC RDW Plt Count Lymph % (Auto) [place] % (Auto) Eos % (Auto) Baso % (Auto) Absolute Neuts (auto) Absolute Lymphs (auto) Absolute Monos (auto) Absolute Eos (auto) Absolute Basos (auto) Seg Neutrophils % Sodium Potassium Chloride Carbon Dioxide Anion Gap BUN Creatinine Est GFR ( Amer) Est GFR (MDRD) Non-Af Glucose Calcium Magnesium Total Bilirubin Direct Bilirubin Neonat Total Bilirubin Neonat Direct Bilirubin Neonat Indirect Bili AST ALT Alkaline Phosphatase Troponin I NT-Pro-B Natriuret Pep Total Protein Albumin SARS-CoV-2 (PCR) NEGATIVE - Diagnostic Test Radiology reviewed: Image reviewed, Reports reviewed Discharge - Discharge Clinical Impression: Congestive heart failure Qualifiers: Heart failure type: unspecified Heart failure chronicity: acute Qualified Code(s): I50.9 - Heart failure, unspecified Pulmonary edema Qualifiers: Chronicity: acute Qualified Code(s): J81.0 - Acute pulmonary edema Condition: Fair Disposition: ADMITTED INPATIENT Admitting Provider: Britney (Hospitalist) Unit Admitted: Telemetry
[2019-11-22 11:31] LABS: ABSOLUTE BASOPHILS # (AUTO) 0.1 10^3/uL (0.0-0.2); ABSOLUTE EOSINOPHILS # (AUTO) 0.1 10^3/uL (0.0-0.6); ABSOLUTE LYMPHOCYTES (AUTO) 1.9 10^3/uL (0.5-4.7); ABSOLUTE MONOCYTES (AUTO) 0.4 10^3/uL (0.1-1.4); ABSOLUTE NEUT (AUTO) 4.4 10^3/uL (1.7-8.2); BASOPHILS % (AUTO) 0.9 % (0-2); EOSINOPHILS % (AUTO) 1.3 % (0-6); HEMATOCRIT 33.4 % (37.9-51.0); HEMOGLOBIN 10.1 g/dL (13.5-17.0); LYMPHOCYTES % (AUTO) 28.1 % (13-45); MEAN CORPUSCULAR HEMOGLOBIN 20.8 pg (27.0-33.4); MEAN CORPUSCULAR HGB CONC 30.3 g/dL (32.0-36.0); MEAN CORPUSCULAR VOLUME 69 fl (80-97); MONOCYTES % (AUTO) 5.4 % (3-13); RED BLOOD COUNT 4.88 10^6/uL (4.35-5.55); RED CELL DISTRIBUTION WIDTH 17.7 % (11.5-14.0); SEGMENTED NEUTROPHILS % (AUTO) 64.3 % (42-78); TOTAL CELLS COUNTED % (AUTO) 100 %; WHITE BLOOD COUNT 6.9 10^3/uL (4.0-10.5)
[2019-11-22 11:39] LABS: ALBUMIN 4.3 g/dL (3.5-5.0); ALKALINE PHOSPHATASE 82 U/L (38-126); ANION GAP 12 (5-19); ASPARTATE AMINO TRANSFERASE 43 U/L (17-59); BILIRUBIN,DIRECT 0.1 mg/dL (0.0-0.4); BILIRUBIN,TOTAL 0.5 mg/dL (0.2-1.3); BLOOD UREA NITROGEN 23 mg/dL (7-20); CALCIUM 9.3 mg/dL (8.4-10.2); CARBON DIOXIDE 26 mmol/L (22-30); CHLORIDE 101 mmol/L (98-107); GLUCOSE 91 mg/dL (75-110); POTASSIUM 4.6 mmol/L (3.6-5.0); TOTAL PROTEIN 7.6 g/dL (6.3-8.2)
[2019-11-22 11:49] LABS: PLATELET COUNT 235 10^3/uL (150-450)
[2019-11-22 11:50] LABS: TROPONIN I 0.029 ng/mL
--- NOTE | 2019-11-22 11:58 | RADIOLOGY REPORT (SQ) ---
EXAM DESCRIPTION: CHEST SINGLE VIEW IMAGES COMPLETED DATE/TIME: 11/22/2019 11:45 am REASON FOR STUDY: cough, sob COMPARISON: None. EXAM PARAMETERS: NUMBER OF VIEWS: One view. TECHNIQUE: Single frontal radiographic view of the chest acquired. RADIATION DOSE: NA LIMITATIONS: None. FINDINGS: LUNGS AND PLEURA: Diffuse right lower lobe airspace disease is present with patchy infiltr ates in the bilateral upper lobes and left retrocardiac region. Findings could either represent mult ifocal pneumonia or pulmonary edema. No gross pleural effusion. No pneumothorax. MEDIASTINUM AND HILAR STRUCTURES: No masses. Contour normal. HEART AND VASCULAR STRUCTURES: Mild cardiomegaly BONES: No acute findings. HARDWARE: None in the chest. OTHER: No other significant finding. IMPRESSION: Multifocal pulmonary infiltrates with mild cardiomegaly. Findings could either indicate multifocal pulmonary edema or pneumonia. TECHNICAL DOCUMENTATION: JOB ID: [id number] 2010 [employer]- All Rights Reserved Reading location - IP/workstation name: [email or web address]
[2019-11-22] MEDS ORDERED: FUROSEMIDE INJ/PF 20 MG/2 ML SDV IV ONE (13:02)
[2019-11-22 13:57] LABS: APPEARANCE,URINE CLEAR; BILIRUBIN,URINE NEGATIVE (NEGATIVE); COLOR,URINE YELLOW; GLUCOSE, URINE NEGATIVE (NEGATIVE); KETONES,URINE TRACE mg/dL (NEGATIVE); LEUKOCYTE ESTERASE,URINE NEGATIVE (NEGATIVE); NITRITE,URINE NEGATIVE (NEGATIVE); PROTEIN,URINE NEGATIVE (NEGATIVE); URINE SPECIFIC GRAVITY 1.016
[2019-11-22] MEDS ORDERED: MAG HYDROX/AL HYDROX/SIMETH SUSP 30 ML UDCUP PO PRN (16:42)
[2019-11-22] MEDS ORDERED: MAGNESIUM HYDROXIDE SUSP 30 ML UDCUP PO PRN (16:42)
[2019-11-22] MEDS ORDERED: NITROGLYCERIN 0.4 MG/TAB 25 TAB/BOTTLE SL PRN (16:42)
[2019-11-22] MEDS ORDERED: BISACODYL 5 MG TABEC PO PRN (17:27)
[2019-11-22] MEDS ORDERED: SENNOSIDES/DOCUSATE 8.6-50 MG 1 EACH TABLET PO PRN (17:27)
[2019-11-22] MEDS: DOCUSATE SODIUM 100 MG CAPSULE PO SCH (18:12)
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
[2019-11-22] MEDS ORDERED: PROMETHAZINE HCL INJ 25 MG/1 ML VIAL ONE (18:55)
[2019-11-22] MEDS: PROMETHAZINE HCL INJ 25 MG/1 ML VIAL IV PRN (19:00)
[2019-11-22] MEDS: OLANZAPINE 2.5 MG TABLET PO SCH (21:08)
[2019-11-22] MEDS: ASPIRIN 81 MG TABLET, ENT COATED PO SCH (21:08)
[2019-11-22] MEDS: ATORVASTATIN CALCIUM 40 MG TABLET PO SCH (21:08)
[2019-11-22] MEDS: HEPARIN SOD (PORCINE) 5,000 UNIT/ML 1 ML VIAL SUBCUT SCH (21:09)
[2019-11-22] MEDS: CARVEDILOL 3.125 MG TABLET PO SCH (21:09)
[2019-11-22] MEDS ORDERED: CARBAMAZEPINE 200 MG TABLET ONE (21:26)
[2019-11-22] MEDS ORDERED: FAMOTIDINE 20 MG TABLET PO SCH (22:00)
[2019-11-22] MEDS ORDERED: TIZANIDINE HCL 4 MG TABLET PO SCH (22:00)
[2019-11-22] MEDS: TEMAZEPAM 15 MG CAPSULE PO PRN (22:17)
[2019-11-22] MEDS: CARBAMAZEPINE 200 MG TABLET PO SCH (22:17)
--- NOTE | 2019-11-22 22:18 | EKG REPORT ---
SEVERITY:- ABNORMAL ECG - SINUS TACHYCARDIA PROBABLE LEFT ATRIAL ABNORMALITY NONSPECIFIC INTRAVENTRICULAR CONDUCTION DELAY : Confirmed by: Elisa Galarza 22-Nov-2019 22:17:36
[2019-11-23] MEDS: ACETAMINOPHEN 325 MG TABLET PO PRN ×2 (03:39→20:02)
[2019-11-23] MEDS: TIZANIDINE HCL 4 MG TABLET PO PRN ×2 (03:41→20:05)
[2019-11-23 06:26] LABS: ABSOLUTE MONOCYTES (AUTO) 0.4 10^3/uL (0.1-1.4); ABSOLUTE NEUT (AUTO) 3.4 10^3/uL (1.7-8.2); BASOPHILS % (AUTO) 0.4 % (0-2); EOSINOPHILS % (AUTO) 0.5 % (0-6); HEMATOCRIT 25.1 % (37.9-51.0); HEMOGLOBIN 8.1 g/dL (13.5-17.0); LYMPHOCYTES % (AUTO) 34.5 % (13-45); MEAN CORPUSCULAR HEMOGLOBIN 21.3 pg (27.0-33.4); MEAN CORPUSCULAR HGB CONC 32.4 g/dL (32.0-36.0); MEAN CORPUSCULAR VOLUME 66 fl (80-97); MONOCYTES % (AUTO) 6.3 % (3-13); PLATELET COUNT 272 10^3/uL (150-450); RED BLOOD COUNT 3.82 10^6/uL (4.35-5.55); RED CELL DISTRIBUTION WIDTH 17.5 % (11.5-14.0); SEGMENTED NEUTROPHILS % (AUTO) 58.3 % (42-78); TOTAL CELLS COUNTED % (AUTO) 100 %; WHITE BLOOD COUNT 5.9 10^3/uL (4.0-10.5)
[2019-11-23 06:38] LABS: ANION GAP 6 (5-19); BLOOD UREA NITROGEN 19 mg/dL (7-20); CALCIUM 8.4 mg/dL (8.4-10.2); CARBON DIOXIDE 30 mmol/L (22-30); CHLORIDE 99 mmol/L (98-107); CHOLESTEROL 127.15 mg/dL (0-200); GLUCOSE 98 mg/dL (75-110); IRON(TIBC) 18.6 ug/dL (49-181); POTASSIUM 4.2 mmol/L (3.6-5.0); TRIGLYCERIDES 53 mg/dL (<150)
[2019-11-23 06:48] LABS: DIRECT LDL 84 mg/dL (<100)
[2019-11-23 06:49] LABS: TROPONIN I 0.042 ng/mL
--- NOTE | 2019-11-23 07:08 | EKG REPORT ---
SEVERITY:- ABNORMAL ECG - SINUS RHYTHM PROBABLE LEFT ATRIAL ABNORMALITY NONSPECIFIC T ABNORMALITIES, LATERAL LEADS BORDERLINE PROLONGED QT INTERVAL : Confirmed by: Elisa Galarza 23-Nov-2019 07:07:43
[2019-11-23 07:14] LABS: FERRITIN 9.69 ng/mL (17.9-464.0)
[2019-11-23] MEDS: HEPARIN SOD (PORCINE) 5,000 UNIT/ML 1 ML VIAL SUBCUT SCH ×3 (07:43→22:35)
[2019-11-23 07:44] LABS: FOLATE 5.98 ng/mL (>2.76)
[2019-11-23] MEDS: PANTOPRAZOLE SODIUM 20 MG TABLET.DR PO SCH (07:45)
--- NOTE | 2019-11-23 09:18 | RADIOLOGY REPORT (SQ) ---
EXAM DESCRIPTION: CHEST SINGLE VIEW IMAGES COMPLETED DATE/TIME: 11/23/2019 9:04 am REASON FOR STUDY: chf COMPARISON: 11/22/2019 EXAM PARAMETERS: NUMBER OF VIEWS: One view. TECHNIQUE: Single frontal radiographic view of the chest acquired. RADIATION DOSE: NA LIMITATIONS: None. FINDINGS: LUNGS AND PLEURA: Persistent focal airspace disease in the right upper lobe and right base . This is significantly improved. Aeration in the left base is improved as well. Small effusions r emain. MEDIASTINUM AND HILAR STRUCTURES: No masses. Contour normal. HEART AND VASCULAR STRUCTURES: Heart size is stable. BONES: No acute findings. HARDWARE: None in the chest. OTHER: No other significant finding. IMPRESSION: Improved aeration bilaterally with persistent focal infiltrate in the right upper lobe a nd right base. This still could represent pneumonia or asymmetric edema. TECHNICAL DOCUMENTATION: JOB ID: [id number] 2010 [employer]- All Rights Reserved Reading location - IP/workstation name: [email or web address]
[2019-11-23] MEDS: CARVEDILOL 3.125 MG TABLET PO SCH ×3 (09:28→22:35)
[2019-11-23] MEDS: DOCUSATE SODIUM 100 MG CAPSULE PO SCH ×2 (09:28→17:35)
[2019-11-23] MEDS: FUROSEMIDE INJ/PF 20 MG/2 ML SDV IV SCH (09:29)
[2019-11-23] MEDS: BACITRACIN ZINC OINTMENT 15 GM TP SCH (09:29)
[2019-11-23] MEDS: LOSARTAN POTASSIUM 25 MG TABLET PO SCH (09:29)
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
[2019-11-23] MEDS: CARBAMAZEPINE 200 MG TABLET PO SCH ×2 (09:30→22:36)
[2019-11-23] MEDS: OLANZAPINE 2.5 MG TABLET PO SCH ×2 (09:30→22:37)
[2019-11-23] MEDS ORDERED: IRON SUCROSE COMPLEX INJ/PF 100 MG/5 ML SDV IV ONE (10:00)
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
[2019-11-23 14:52] LABS: ABSOLUTE EOSINOPHILS # (AUTO) 0.1 10^3/uL (0.0-0.6); ABSOLUTE LYMPHOCYTES (AUTO) 2.1 10^3/uL (0.5-4.7); ABSOLUTE MONOCYTES (AUTO) 0.5 10^3/uL (0.1-1.4); ABSOLUTE NEUT (AUTO) 4.7 10^3/uL (1.7-8.2); BASOPHILS % (AUTO) 0.3 % (0-2); EOSINOPHILS % (AUTO) 1.2 % (0-6); HEMATOCRIT 32.1 % (37.9-51.0); HEMOGLOBIN 10.1 g/dL (13.5-17.0); LYMPHOCYTES % (AUTO) 28.5 % (13-45); MEAN CORPUSCULAR HEMOGLOBIN 20.8 pg (27.0-33.4); MEAN CORPUSCULAR HGB CONC 31.5 g/dL (32.0-36.0); MEAN CORPUSCULAR VOLUME 66 fl (80-97); PLATELET COUNT 343 10^3/uL (150-450); RED BLOOD COUNT 4.86 10^6/uL (4.35-5.55); RED CELL DISTRIBUTION WIDTH 17.9 % (11.5-14.0); TOTAL CELLS COUNTED % (AUTO) 100 %; WHITE BLOOD COUNT 7.4 10^3/uL (4.0-10.5)
[2019-11-23] MEDS: PROMETHAZINE HCL INJ 25 MG/1 ML VIAL IV PRN (18:58)
[2019-11-23] MEDS: TEMAZEPAM 15 MG CAPSULE PO PRN (22:35)
[2019-11-23] MEDS: ATORVASTATIN CALCIUM 40 MG TABLET PO SCH (22:35)
[2019-11-23] MEDS: ASPIRIN 81 MG TABLET, ENT COATED PO SCH (22:35)
[2019-11-24] MEDS: TIZANIDINE HCL 4 MG TABLET PO PRN (03:06)
[2019-11-24] MEDS: PROMETHAZINE HCL INJ 25 MG/1 ML VIAL IV PRN (03:23)
[2019-11-24] MEDS ORDERED: LORAZEPAM INJ 2 MG/1 ML VIAL IV PRN (04:43)
[2019-11-24] MEDS: HEPARIN SOD (PORCINE) 5,000 UNIT/ML 1 ML VIAL SUBCUT SCH (05:13)
[2019-11-24] MEDS: PANTOPRAZOLE SODIUM 20 MG TABLET.DR PO SCH (05:13)
[2019-11-24] MEDS ORDERED: RINGERS SOLUTION,LACTATED 1,000 ML IV ONE (06:15)
[2019-11-24 06:20] LABS: ABSOLUTE EOSINOPHILS # (AUTO) 0.1 10^3/uL (0.0-0.6); ABSOLUTE LYMPHOCYTES (AUTO) 1.7 10^3/uL (0.5-4.7); ABSOLUTE MONOCYTES (AUTO) 0.4 10^3/uL (0.1-1.4); ABSOLUTE NEUT (AUTO) 3.3 10^3/uL (1.7-8.2); BASOPHILS % (AUTO) 0.5 % (0-2); EOSINOPHILS % (AUTO) 1.3 % (0-6); HEMATOCRIT 24.9 % (37.9-51.0); LYMPHOCYTES % (AUTO) 30.6 % (13-45); MEAN CORPUSCULAR HEMOGLOBIN 20.8 pg (27.0-33.4); MEAN CORPUSCULAR HGB CONC 31.9 g/dL (32.0-36.0); MEAN CORPUSCULAR VOLUME 65 fl (80-97); MONOCYTES % (AUTO) 6.8 % (3-13); PLATELET COUNT 239 10^3/uL (150-450); RED BLOOD COUNT 3.83 10^6/uL (4.35-5.55); RED CELL DISTRIBUTION WIDTH 17.7 % (11.5-14.0); SEGMENTED NEUTROPHILS % (AUTO) 60.8 % (42-78); TOTAL CELLS COUNTED % (AUTO) 100 %; WHITE BLOOD COUNT 5.4 10^3/uL (4.0-10.5)
[2019-11-24 06:33] LABS: BLOOD UREA NITROGEN 18 mg/dL (7-20); CALCIUM 8.4 mg/dL (8.4-10.2); GLUCOSE 96 mg/dL (75-110); POTASSIUM 4.2 mmol/L (3.6-5.0)
[2019-11-24 06:38] LABS: CARBON DIOXIDE 30 mmol/L (22-30); CHLORIDE 98 mmol/L (98-107)
[2019-11-24 06:43] LABS: ANION GAP 6 (5-19)
--- NOTE | 2019-11-24 07:59 | XCELERA REPORT ---
[address] [address] Transthoracic Echocardiogram Report Name: LYUDMILA MITCHELL Age: 48 yrs Gender: Male : 1970 Patient Status: Inpatient Patient Location: [address] [place], [place] [address] Study Date: 11/23/2019 07:06 PM Height: 71 in Weight: 160 lb BSA: 1.9 m2 Procedure: A complete two-dimensional transthoracic echocardiogram was performed (2D, M-mode, spectral and color flow Doppler). The study was technically difficult with many images being suboptimal in quality. Reason For Study: New onset heart failure Ordering Physician: DALIA DEAN Performed By: Ena Johnson Interpretation Summary The left ventricle is severely dilated. There is global thinning of the left ventricular gottlieb. Left ventricular systolic function is severely reduced. The Ejection Fraction estimate is <20%. LV diastolic function could not be adequately assessed. There is severe global hypokinesis of the left ventricle. There is no thrombus. Mild LAE. RV systolic funtion is mildly reduced. Moderate to severe MR, trace to mild TR, moderate PI. No prior studies for comparison. MMode/2D Measurements & Calculations RVDd: 3.5 cm LVIDd: 7.3 cm FS: 9.6 % Ao root diam: 2.3 cm IVSd: 0.83 cm LVIDs: 6.6 cm EDV(Teich): 282.4 ml Ao root area: 4.3 cm2 LVPWd: 1.0 cm ESV(Teich): 224.9 ml LA dimension: 4.3 cm EF(Teich): 20.4 % Doppler Measurements & Calculations MV E max shree: MV P1/2t max shree: Ao V2 max: LV V1 max P.7 cm/sec 192.9 cm/sec 100.4 cm/sec 4.3 mmHg MV P1/2t: 57.6 msec Ao max PG: LV V1 max: MVA(P1/2t): 3.8 cm2 4.0 mmHg 103.1 cm/sec MV dec slope: 980.8 cm/sec2 MV dec time: 0.08 sec PA V2 max: PI end-d shree: TR max shree: MV P1/2t-pr_phl: 57.7 cm/sec 213.1 cm/sec 211.7 cm/sec 57.6 msec PA max P.3 mmHg TR max P.9 mmHg Left Ventricle The left ventricle is severely dilated. There is global thinning of the left ventricular gottlieb. Left ventricular systolic function is severely reduced. The Ejection Fraction estimate is <20%. LV diastolic function could not be adequately assessed. There is severe global hypokinesis of the left ventricle. There is no thrombus. Right Ventricle The right ventricle is normal in size, thickness and function. The right ventricular systolic function is mildly reduced. Atria The right atrium is normal. The left atrium is mildly dilated. The interatrial septum is intact with no evidence for an atrial septal defect. Mitral Valve There is mild to moderate mitral leaflet calcification. There is no evidence of mitral valve prolapse. There is no mitral valve stenosis. There is a moderate to severe amount of mitral regurgitation. Aortic Valve The aortic valve is grossly normal. There is no aortic valve stenosis. No aortic regurgitation is present. Tricuspid Valve The tricuspid valve is not well visualized, but is grossly normal. There is no tricuspid valve prolapse. There is no tricuspid stenosis. There is a trace to mild amount of tricuspid regurgitation. Pulmonic Valve The pulmonic valve is not well seen, but is grossly normal. There is no pulmonic valvular stenosis. There is a moderate amount of pulmonic regurgitation. Great Vessels The inferior vena cava appeared normal and decreased < 50% with respiration (RAP 10-15 mmHg). Effusions The pericardium appears normal. There is no pericardial effusion. : DALIA DEAN Antonio
[2019-11-24] MEDS: LOSARTAN POTASSIUM 25 MG TABLET PO SCH (09:19)
[2019-11-24] MEDS: DOCUSATE SODIUM 100 MG CAPSULE PO SCH (09:19)
[2019-11-24] MEDS: FUROSEMIDE INJ/PF 20 MG/2 ML SDV IV SCH (09:19)
[2019-11-24] MEDS: CARVEDILOL 3.125 MG TABLET PO SCH ×2 (09:19→09:37)
[2019-11-24] MEDS: OLANZAPINE 2.5 MG TABLET PO SCH (09:20)
[2019-11-24] MEDS: CARBAMAZEPINE 200 MG TABLET PO SCH (09:20)
[2019-11-24] MEDS: BACITRACIN ZINC OINTMENT 15 GM TP SCH (09:21)
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
[2019-11-24] MEDS ORDERED: NORMAL SALINE 250 ML IV PRN ×2 (12:15)
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
[2019-11-24 16:16] VITALS: BP 113/68
== END 2019-11-24 16:12 | disposition short-term general hospital (02) | DRG 293 ==
LOC: ER 10:21 → EH 13:12 → 4S 16:08
PROVIDERS: ADMIT Hospitalist; ATTEND Hospitalist
DX: I50.82 Biventricular heart failure (principal); I51.7 Cardiomegaly; J81.0 Acute pulmonary edema; I42.0 Dilated cardiomyopathy; R94.31 Abnormal electrocardiogram [ECG] [EKG]; R00.0 Tachycardia, unspecified; D50.9 Iron deficiency anemia, unspecified; M62.838 Other muscle spasm; M24.542 Contracture, left hand; M24.522 Contracture, left elbow; B35.1 Tinea unguium; S80.812A Abrasion, left lower leg, initial encounter; F32.9 Major depressive disorder, single episode, unspecified; Z66 Do not resuscitate; W21.89XA Striking against or struck by other sports equipment, initial encounter; Z87.820 Personal history of traumatic brain injury; Z79.899 Other long term (current) drug therapy; Z88.0 Allergy status to penicillin; Z97.8 Presence of other specified devices; Z87.891 Personal history of nicotine dependence; Z03.818 Encounter for observation for suspected exposure to other biological agents ruled out
CPT/HCPCS: 36415; 71045; 80048; 80053; 80061; 81001; 82607; 82728; 82746; 83540; 83550; 83735; 83880; 84443; 84466; 84484; 85025; 85045; 86850; 86900; 86901; 86920; 87635; 93005; 93010; 93306; 94640; 96374; 99285; J1644; J1756; J1940; J2060; J2405; J2550; J3490; J7120; J7512; J7620